=== PATIENT | female | born 1935 | race Caucasian/White ===

== ENCOUNTER 2016-07-05 22:37 | Emergency (ER) | payer MEDICARE, OTHER ==
[2016-07-05] MEDS ORDERED: ONDANSETRON HCL/PF 2 MG/ML VIAL IV ONE (22:39)
[2016-07-05 22:50] LABS: Hemoglobin 13.5 gm/dL (12.5-16.0); Mean Cell Volume 92.8 fl (78-100); Mean Corpuscular Hemoglobin 30.5 pg (27-31); Mean Corpuscular Hgb Conc 32.9 g/dl (32-36); Mean Platelet Volume 10.4 fl (6.0-9.5); Platelet Count 202 K/mm3 (150-450); Red Blood Count 4.42 M/mm3 (4.2-5.4); White Blood Count 20.3 K/mm3 (4.0-10.5)
[2016-07-05 22:51] LABS: Total Cells Counted 100
[2016-07-05 23:03] LABS: Albumin * 3.7 gm/dl (3.4-5.0); Anion Gap 16.7 mmol/L (6.8-13.8); BUN/Creatinine Ratio 27.3 (9.0-21.6); Bilirubin, Total 0.5 mg/dL (0.0-1.1); Calcium * 9.1 mg/dL (7.9-10.9); Carbon Dioxide 25.8 mmol/L (24-32.6); Potassium 3.5 mmol/L (3.4-4.6); Total Protein 7.9 gm/dL (6.2-8.2)
[2016-07-05 23:25] LABS: Band 5 % (0-2.0); Eosinophil 1 % (0-3); Lymphocyte 8 % (20-51); Monocyte 9 % (0-9); Neutrophil 77 % (42-75); Neutrophil # 15.6 K/mm3 (1.3-6.0)
[2016-07-05] MEDS ORDERED: MORPHINE SULFATE 2 MG/ML DISP.SYRIN IV ONE ×2 (23:25→23:42)
[2016-07-05 23:26] LABS: Platelet Estimate Normal (NORMAL); RBC Morphology Normal (NORMAL)
[2016-07-05] MEDS ORDERED: MORPHINE SULFATE 2 MG/ML DISP.SYRIN ONE ×2 (23:26→23:44)
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
[2016-07-05 23:42] VITALS: BP 181/72
[2016-07-05] MEDS ORDERED: LORazepam 2 MG/ML DISP.SYRIN IV ONE (23:53)
[2016-07-05] MEDS ORDERED: LORazepam 2 MG/ML DISP.SYRIN ONE (23:53)
== END 2016-07-06 00:11 | disposition short-term general hospital (02) ==
LOC: ER 22:37
PROC: 0T9B70Z Drainage of Bladder with Drainage Device, Via Natural or Artificial Opening (ICD-10-PCS; principal; 2016-07-05)
DX: S06.5X0A Traumatic subdural hemorrhage without loss of consciousness, initial encounter (principal); S06.6X0A Traumatic subarachnoid hemorrhage without loss of consciousness, initial encounter; S02.119A Unspecified fracture of occiput, initial encounter for closed fracture; W10.2XXA Fall (on)(from) incline, initial encounter; Z91.81 History of falling; Y93.9 Activity, unspecified; Y92.009 Unspecified place in unspecified non-institutional (private) residence as the place of occurrence of the external cause; Y99.9 Unspecified external cause status

== ENCOUNTER 2016-09-12 13:42 | Emergency (ER) | payer MEDICARE, OTHER ==
[2016-09-12] MEDS ORDERED: ONDANSETRON HCL/PF 2 MG/ML VIAL IV ONE (13:45)
--- NOTE | 2016-09-12 13:48 | ERNOTE ---
Abdominal HPI - General Time Seen by Provider: 09/12/16 13:42 Source: patient Exam Limitations: no limitations - Immun/Allergies/Home Medications Immunizatons: IMMUNIZATION HX Immunizations Up to Date Yes History of Influenza Vaccine Yes Hx Pneumococcal Vaccination Yes Allergies/Adverse Reactions: Allergies codeine [Codeine] Adverse Reaction (Mild, Verified 07/05/16 22:56) NAUSEA, VOMITING Home Medications: HOME MEDICATIONS Multivitamin [Multivitamins] 1 each PO DAILY 04/28/12 [Last Taken 02/14/16] Aspirin [Aspirin Enteric Coated] 81 mg PO DAILY 12/30/12 [Last Taken 02/14/16] Cholecalciferol (Vitamin D3) [Vitamin D3] 2,000 unit PO DAILY 10/11/14 [Last Taken 02/14/16] Ascorbic Acid [Vitamin C] 500 mg PO DAILY 01/25/16 [Last Taken 02/14/16] Calc/D3/Mag/Zn/[place] [Calcium 600 mg Plus Vit D Tab] 1 each PO BID 03/01 [Last Taken 02/14/16] Cyanocobalamin [Vitamin B-12] 1,000 mcg PO DAILY 01/25/16 [Last Taken 02/14/16] Metoprolol Succinate [Toprol Xl] 50 mg PO DAILY 01/25/16 [Last Taken 02/14/16 20 :00] Naproxen Sodium [Aleve] 220 mg PO BID PRN 01/25/16 [Last Taken 02/14/16] - History of Present Illness Narrative: Patient felt fine when she got up this morning. She was at a lunch and ate a BLT sandwich. About twenty minutes later she started to vomit multiple times, got hot and light headed prior to that. She denies any abdominal pain, no diarrhea, no recent illness Review of Systems - Review of Systems Constitutional: Present: recent illness - fall with concussion two months ago, recovered well EYE: Absent: vision changes ENT: Absent: sore throat Respiratory: Absent: shortness of breath, cough Cardiology: Absent: chest pain Gastrointestinal/Abdominal: Present: See HPI. Absent: diarrhea, abdominal pain Genitourinary: Present: no symptoms reported Musculoskeletal: Absent: back pain Neurological: Absent: headache, weakness, numbness - Patient's Past Medical History Patient History - Medical: Osteoarthritis, Other Patient History - Cardiac/Respiratory: Atrial Fibrillation, Hypertension Patient History - Cancer: No Hx of Cancer Patient History - Surgical Procedures: Appendectomy, Cholecystectomy, Colonoscopy, Total Hip Replacement Patient History - Other: None - Family History Mother Family History - Medical: , No pertinent hx Family History - Cardiac/Respiratory: No pertinent hx Father Family History - Medical: , Renal Disease Family History - Cardiac/Respiratory: No pertinent hx - Social History Living Situations: home Abuse History: No History of abuse Psych History: No pertinent hx Alcohol Use: none Drug Use: none - Immunizations Immunizations Up to Date: Yes Hx Pneumococcal Vaccination: Yes History of Influenza Vaccine: Yes Physical Exam - Physical Exam General Appearance: Present: wd/wn, alert, no apparent distress Eye Exam: Normal inspection: bilateral, PERRL: bilateral Respiratory: Present: no respiratory distress, normal breath sounds, no accessory muscle use, chest nontender, lungs clear Cardiovascular/Chest: Present: regular rate, rhythm, no murmur Gastrointestinal/Abdominal: Present: normal bowel sounds, nontender, nondistended, soft Extremity Exam: Present: no edema Neurological Exam: Present: alert, oriented, normal mood/affect Skin Exam: Present: normal color, warm/dry ED Progress - Results and Orders Patient's Lab Results:: I have reviewed the patient's lab results. - Vital Signs Patient's Vital Signs:: I have reviewed the patient's vital signs. - EKG EKG: NSR, unchanged from - 01/2016 EKG read: Interp. by me - X-Ray X-Ray #1 X-Ray: abdomen - abnormal bowel gas pattern suggestive of colitis Interpretation: Reviewed by me - Progress/Reassessment Progress Note-Subjective: 09/12/16 15:24 discussed results with patient and family, patient is ffeeling much better, no nausea, ready to try water family member present states that patient was unresponsive for a few minutes in chair prior to vomiting, discussed diffential diagnosis, most likely vasovagal response to imminent vomiting, will get EKG and troponin to look for possible cardiac cause 09/12/16 16:10 tolerating water, feeling back to normal, ready to go home Departure - Departure Clinical Impression: Vasovagal near syncope Gastritis Qualifiers: Gastritis type: unspecified gastritis Chronicity: acute Gastritis bleeding: without bleeding Qualified Code(s): K29.00 - Acute gastritis without bleeding Disposition: Home self-care Condition: Good Instructions: Nausea, Adult, Vasovagal Syncope, Adult Referrals: Humberto Mahajan DO [Primary Care Provider] -
--- OUTSIDE RECORDS SUMMARY | 2016-09-12 13:51 | XMS REPORT | Continuity of Care Document ---
:1935 Author Organization [facility] ([facility]) Address [address] [place] [address] Phone [phone] Care Team Providers Name Role Phone Humberto Mahajan Primary Care Provider [phone] Source Comments This disclosure is being made pursuant to the Care Everywhere program, applicable federal and state laws, and may not contain all informaitonavailable regarding this patient.[facility] ([facility]) Active Allergies and Adverse Reactions Allergen Noted Date Severity Reactions Comments Codeine 07/06/2016 Unknown Current Medications Prescription Sig. Disp. Refills Start Date End Date Status calcium carbonate (650 Take 650 mg by Active mg Ca) 1625 mg tablet mouth 2 times daily. metoPROLol tartrate 50 Take 50 mg by Active mg tablet mouth 2 times daily. multivitamin tablet Take 1 tablet Active by mouth daily. acetaminophen 325 mg Take 650 mg by Active tablet mouth every 6 hours as needed. cyanocobalamin (VITAMIN Take 500 mcg by Active B-12) 500 mcg tablet mouth daily. ascorbic acid (vitamin Take 500 mg by Active C) (VITAMIN C) 500 mg mouth daily. tablet cholecalciferol (VITAMIN Take 2,000 Active D3) 1,000 unit capsule Units by mouth daily. docusate 100 mg capsule Take 1 capsule 60 capsule 3 07/09/2016 Active (100 mg total) by mouth 2 times daily. sennosides 8.6 mg tablet Take 1-2 60 tablet 5 07/09/2016 Active tablets (8.6-17.2 mg total) by mouth daily. meclizine 25 mg tablet Take 1 tablet 30 tablet 0 07/11/2016 Active (25 mg total) by mouth 3 times daily. metoPROLol succinate 100 Take 1 tablet 30 tablet 11 07/11/2016 Active mg XL tablet (100 mg total) by mouth daily. aspirin 81 mg chewable Take 1 tablet 60 tablet 0 07/18/2016 Active tablet (81 mg total) by mouth daily. caffeine 200 mg tablet Take 1 tablet 80 tablet 11 07/17/2016 Active (200 mg total) by mouth 2 times daily. lisinopril 20 mg tablet Take 1 tablet 80 tablet 11 07/17/2016 Active (20 mg total) by mouth 2 times daily. traMADol 50 mg tablet Take 1 tablet 120 tablet 0 07/17/2016 Active (50 mg total) by mouth 4 times daily as needed. Active Problems Problem Noted Date occipital bone fracture 07/06/2016 Subdural hematoma, acute 07/06/2016 Chronic atrial fibrillation 07/06/2016 SAH (subarachnoid hemorrhage) 07/06/2016 SDH (subdural hematoma) 07/06/2016 Most Recent Encounters Date Type Specialty Providers Description 09/01/2016 Office Visit Neurosurgery Alessandro Cohen, Dx: SDH (subdural MD hematoma) (Primary Dx) 09/01/2016 [facility], Dx: Trauma Encounter 09/01/2016 Office Visit Alessandro Kirkland, Chief Comp: Patient MD Reported Reason For Visit 09/01/2016 [facility], Dx: Trauma Encounter 08/18/2016 Office Visit Alessandro Kirkland, Chief Comp: Patient MD Reported Reason For Visit 08/18/2016 Office Visit Alessandro Kirkland, Chief Comp: Patient MD Reported Reason For Visit 07/21/2016 Telephone Neurosurgery Tyler Callahan MD 07/11/2016 Orders/Notes Neurosurgery Tyler Callahan MD 07/09/2016 [facility] Radiology Viola Melgar MD Dx: Trauma Encounter 07/07/2016 [facility] Neurology Viola Melgar MD Chief Comp: Patient Encounter Reported Reason For Visit 07/06/2016 [facility] [place], Chief Comp: Patient Encounter MD Mohit Reported Reason For Viola Melgar MD Visit 07/06/2016 [facility], Chief Comp: Patient Encounter MD Mohit Reported Reason For Visit 07/06/2016 [facility], Chief Comp: Patient Encounter MD Mohit Reported Reason For Visit 07/06/2016 [facility] Neurology Viola Melgar MD Chief Comp: Patient Encounter Rep[facility]: [facility] (Primary 07/17/2016 Encounter Inpatient - Adult MD Arian Dx) Constantino Azevedo MD Howard, Matthew A III, MD Kawasaki, Hiroto, MD Social History Tobacco Use Types Packs/Day Years Used Date Former Smoker Cigarettes 0.25 10 Tobacco Cessation:Counseling Given: Yes Comments: Alcohol Use Drinks/Week oz/Week Comments Yes 1 Standard drinks or equivalent 0.6 Last Filed Vital Signs Vital Sign Reading Time Taken Blood Pressure 114/57 09/01/2016 2:32 PM CDT Pulse 64 09/01/2016 2:32 PM CDT Temperature 35.4 C (95.7 F) 09/01/2016 2:32 PM CDT Respiratory Rate 14 07/17/2016 7:41 AM CDT Height 1.702 m (5' 7") 09/01/2016 2:32 PM CDT Weight 81.7 kg (180 lb 1.9 oz) 09/01/2016 2:32 PM CDT Body Mass Index 28.2 09/01/2016 2:32 PM CDT Oxygen Saturation 94% 07/17/2016 7:41 AM CDT Plan of Care Date Type Specialty Providers Description 09/29/2016 Appointment Radiology Chief Comp: Patient Reported Reason For Visit 09/29/2016 Appointment Neurosurgery Alessandro Cohen MD Chief Comp: Patient [address] [place] [address] [phone] (Fax) Health Maintenance Due Date Last Done Comments Hepatitis B Vaccine (1 of 3 - Primary Series) 1935 Tdap Vaccine 1945 Lipid Disorder Screening 1952 Td Vaccine 1953 Colonoscopy 06/26/1984 Zoster Vaccine 1994 Osteoporosis Screening (DXA Bone Density) 06/28/1999 Pneumococcal Vaccine (1 of 2 - PCV13) 06/28/1999 Influenza Vaccine: Seasonal (Season Ended) 2016 Results from Last [address] BRAIN WO CONTRAST ([id number]) (09/01/2016 2:22 PM)Only the most recent of3 resultswithin the time period is included. Narrative Procedure: CT BRAIN WO CONTRAST ([id number]) Indication: Subdural hematoma follow-up Technique: Axial CT of the brain without IV contrast. Sagittal and coronal reformations are also provided for review. Comparison: 07/06/2016 Findings: Interval evolution of the right-sided subdural hematoma which now appears iso to hypoattenuating with redistribution of the components without significant change in the overall size. The left-sided subdural hematoma is no longer evident nor is the falcine component. No new hemorrhage. No large vascular distribution ischemic infarct. Unremarkable configuration of the ventricles and basilar cisterns. Unremarkable brainstem and posterior fossa. Right occipital nondisplaced skull fracture is redemonstrated. Impression: Expected mild interval evolution and reduction in intracranial hemorrhage. Procedure Note Mu, Incoming Imaging Results - SunSeptember 01, 2016 4:24 PM CDT Procedure: CT BRAIN WO CONTRAST ([id number]) Indication: Subdural hematoma follow-up Technique: Axial CT of the brain without IV contrast. Sagittal and coronal reformations are also provided for review. Comparison: 07/06/2016 Findings: Interval evolution of the right-sided subdural hematoma which now appears iso to hypoattenuating with redistribution of the components without significant change in the overall size. The left-sided subdural hematoma is no longer evident nor is the falcine component. No new hemorrhage. No large vascular distribution ischemic infarct. Unremarkable configuration of the ventricles and basilar cisterns. Unremarkable brainstem and posterior fossa. Right occipital nondisplaced skull fracture is redemonstrated. Impression: Expected mild interval evolution and reduction in intracranial hemorrhage. T SPINE AP& LATERAL (09/01/2016 1:42 PM)Only the most recent of2 resultswithin the time period is included. Impressions Findings / Impression: Stable alignment of the thoracic spine, with redemonstrated diffuse osteopenia. No new fracture appreciated. Alignment of the known fractures at T7-T9 is stable. Narrative Procedure: T SPINE AP & LATERAL Clinical Indication: Thoracic spine fracture Comparison: 07/08/2016, MR images dated 07/06/2016 Procedure Note Mu, Incoming Imaging Results - SunSeptember 01, 2016 2:43 PM CDT Procedure: T SPINE AP & LATERAL Clinical Indication: Thoracic spine fracture Comparison: 07/08/2016, MR images dated 07/06/2016 IMPRESSION Findings / Impression: Stable alignment of the thoracic spine, with redemonstrated diffuse osteopenia. No new fracture appreciated. Alignment of the known fractures at T7-T9 is stable. BASIC METABOLIC PANEL W/ CALCIUM (CHEM 8) (07/17/2016 9:37 AM)Only the most recent of13 resultswithin the time period is included. Component Value Range Sodium 134(L) 135-145 mEq/L Potassium 4.2 3.5-5.0 mEq/L Chloride 96 95-107 mEq/L CO2 26 22-29 mEq/L BUN 10 10-20 mg/dL Creatinine 0.5Comment: 0.5-1.0 mg/dL Creatinine switched to enzymatic method on 08/23/2010.GFR equation switched to IDMS-traceable MDRD equation on 08/23/2010. Calculated GFR values are not valid in clinical settings where serum creatinine is changing. Glucose 111(H)Comment: 65-99 mg/dL The Expert Committee on the Diagnosis and Classification of Diabetes has defined impaired fasting glucose as greater than or equal to 100 mg/dL but less than 126 mg/dL.(Diabetes Care 28 (Suppl 1)S41,2005) Calcium 9.4 8.5-10.5 mg/dL Anion Gap 12 mEq/L Calculated GFR >90 >60 mL/min/1.73 m2 Specimen Blood CBC (COMPLETE BLOOD COUNT) (07/15/2016 8:03 AM)Only the most recent of9 resultswithin the time period is included. Component Value Range WBC Count 12.9(H) 3.7-10.5 K/MM3 RBC Count 4.15 4.00-5.20 M/MM3 Hemoglobin 12.5 11.9-15.5 g/dL Hematocrit 38 35-47 % MCV (Mean Corpuscular Volume) 91 82-99 FL MCH (Mean Corpuscular Hemoglobin) 30 25-35 PG MCHC (Mean Corpuscular Hemoglobin Concentration) 33 32-36 % Platelet Count 272 150-400 K/MM3 MPV (Mean Platelet Volume) 9.7 9.4-12.3 FL RBC Dist Width-STD 48.1(H) 36.4-46.3 FL RBC Distrib Width 14.6(H) 9.0-14.5 % Nucleated RBC 0 /100 WBC Specimen Whole Blood SODIUM (07/13/2016 8:31 PM)Only the most recent of3 resultswithin the time period is included. Component Value Range Sodium 127(L) 135-145 mEq/L Specimen Blood OSMOLALITY-URINE (07/12/2016 10:28 AM)Only the most recent of2 resultswithin the time period is included. Component Value Range Osmolality-Urine 622 009-3778 mOsm/k Specimen Urine OSMOLALITY, PLASMA (07/12/2016 10:10 AM)Only the most recent of2 resultswithin the time period is included. Component Value Range Osmolality, Plasma 259(L) 275-295 mOsm/kg Specimen Blood SODIUM-URINE,RANDOM (07/12/2016 6:25 AM) Component Value Range Sodium, Urine, Random 184 mEq/L Specimen Urine URINE CULTURE, ROUTINE AEROBIC (07/10/2016 7:41 PM) Component Value Range Quantitative Culture Mixed Nathalia (Urogenital) suggesting an improperly collected specimen(A) Specimen Culture - Urine, Midstream clean catch ECG - EKG 12 LEAD (07/10/2016 7:21 AM)Only the most recent of2 resultswithin the time period is included. Component Value Range ECG SEVERITY - OTHERWISE NORMAL ECG - VENT. RATE 77 bpm RR 779 ms P-R INTERVAL 156 ms QRSD INTERVAL 102 ms QT INTERVAL 408 ms QTC INTERVAL 462 ms P AXIS 13 degrees QRS AXIS -16 degrees T WAVE AXIS 17 degrees REPORT SINUS RHYTHM [Now Present] BORDERLINE LEFT AXIS DEVIATION [Insig. Chg.] SIGNIFICANT RHYTHM AND ECG CONTOUR CHANGES [Now Absent] NONSPECIFIC REPOL ABNORMALITY, INF-LAT LEADS [Now Absent] PAIRED VENTRICULAR PREMATURE COMPLEXES [Now Absent] ATRIAL FIBRILLATION Interpreting Physician: Shant Koch MD URINALYSIS (07/10/2016 7:00 AM) Component Value Range Color, Urine Yellow Straw, Pale Yellow, Yellow, Clear, None Clarity, Urine Cloudy(A) Clear pH, Urine 7.0 <9.0 Glucose, Urine Negative Negative Blood, Urine 2+(A) Negative Ketones, Urine Negative Negative Protein, Urine 1+(A) Negative Urobilinogen, Urine Normal Normal Bilirubin, Urine Negative Negative Leukocyte Esterase, Urine 3+(A) Negative Nitrite, Urine Positive(A) Negative Spec [place], Urine 1.010 1.000-1.030 Specimen Urine T SPINE 45& 90 DEGREE (07/07/2016 1:30 PM) Impressions Findings / Impression: Radiographs at 45 and 90 degrees sitting. Known subtle fractures at T7-T9 are less conspicuous on plain radiograph. No dynamic instability. Multilevel degenerative change without evidence of new fracture or dislocation. Narrative Procedure: T SPINE 45 & 90 DEGREE Clinical Indication: History of trauma with compression fracture. Comparison: MRI and CT dated 07/06/2016. Procedure Note Mu, Incoming Imaging Results - SunJul 07, 2016 3:37 PM CDT Procedure: T SPINE 45 & 90 DEGREE Clinical Indication: History of trauma with compression fracture. Comparison: MRI and CT dated 07/06/2016. IMPRESSION Findings / Impression: Radiographs at 45 and 90 degrees sitting. Known subtle fractures at T7-T9 are less conspicuous on plain radiograph. No dynamic instability. Multilevel degenerative change without evidence of new fracture or dislocation. PHOSPHORUS (07/07/2016 3:40 AM)Only the most recent of2 resultswithin the time period is included. Component Value Range Phosphorus 3.0Comment:New reference range installed 01/26/15. 2.5-4.5 mg/dL Specimen Blood MAGNESIUM (07/07/2016 3:40 AM)Only the most recent of2 resultswithin the time period is included. Component Value Range Magnesium 2.3 1.5-2.9 mg/dL Specimen Blood BLOOD GLUCOSE, BEDSIDE (07/06/2016 6:39 PM)Only the most recent of3 resultswithin the time period is included. Component Value Range Glucose, Accu-Chek 163(H) 65-99 mg/dL Specimen Blood, capillary EEG - CONTINUOUS BEDSIDE EEG MONITORING (07/06/2016 4:29 PM) Viola Cox MD 07/06/20164:29 PM REBEL PHILLIP 81 y.o. female Continuous Bedside EEG Monitoring (CBEM) with Video Day 0: dates/times reviewed 07/06/2016 at 0925 to 07/06/2016 at 1252. O1 and O2 leads are absent due to cervical collar Reason for EEG monitoring: EEG is requested for this 81 y.o. female with traumatic brain injury for evaluation of seizure. Ordering Provider: Leslie Vásquez Clinical State: awake and asleep Electrographic Findings: Background: There is intermittent 7-8 Hz posterior dominant rhythm, with diffuse background showing theta more than delta slowing and superimposed fast activity.Sleep is seen with periodic arousals associated with increased respiratory movement. Interictal Discharges: none Ictal Discharges: none Reactive EEG change: present Clinical Events: none Description: This is an abnormal EEG due to the presence of diffuse background slowing.No epileptiform activity is seen. Impression: Findings are consistent with diffuse cerebral dysfunction.No seizure activity is seen.Periodic arousals in sleep could be suggestive of sleep apnea. Findings reported to Dr. Herrera of Neurosurgery. Recording continues. Aki Lechuga Neurology Fellow I,Viola Melgar MD, interpreted this EEG/VEEG in an instructive setting with the above named resident and/or fellow. ABDOMEN AP SUPINE (07/06/2016 4:18 PM) Impressions Findings/impression: The tip of the orogastric tube and the sidehole are located in the gastric body. The bowel gas pattern is nonobstructive.The lung bases are clear. Narrative Procedure:ABDOMEN AP SUPINE Clinical Indication: Evaluate orogastric tube placement Technique: Supine portable radiograph of the abdomen. Comparison: None. Procedure Note Mu, Incoming Imaging Results - Sonya Jul 06, 2016 5:50 PM CDT Procedure: ABDOMEN AP SUPINE Clinical Indication: Evaluate orogastric tube placement Technique: Supine portable radiograph of the abdomen. Comparison: None. IMPRESSION Findings/impression: The tip of the orogastric tube and the sidehole are located in the gastric body. The bowel gas pattern is nonobstructive. The lung bases are clear. ECHO ADULT - ECHOCARDIOGRAM, TRANSTHORACIC (07/06/2016 3:47 PM) Component Value Range Interpretation Summary Portable study performed on inpatient unit. Normal left ventricular size. Normal left ventricular systolic function. LV Ejection Fraction=56% (based on Biplane Method of Discs). No regional wall motion abnormalities noted. Upper limit of normal right ventricular size. Probably normal right ventricular systolic function. No hemodynamically significant valvular abnormalities noted. Patient Height (cm) 177.8 cm Patient Weight (kg) 89.4 kg Systolic Pressure (mmHg) 132 mmHg Diastolic Pressure (mmHg) 68 mmHg BSA (meters^2) 2.1 m^2 Left Ventricle (LV) Normal left ventricular size. Normal LV wall thickness. Normal left ventricular systolic function. LV Ejection Fraction=56% (based on Biplane Method of Discs). E/E' ratio is 6, which predicts normal LV filling pressure. No regional wall motion abnormalities noted. Right Ventricle (RV) Upper limit of normal right ventricular size. Probably normal right ventricular systolic function. Left and Right Atria (LA, RA) Normal LA chamber size. Normal right atrial size. No interatrial shunt visualized by color doppler Mitral Valve (MV) Normal mitral valve leaflet morphology Trace mitral regurgitation by spectral Doppler. Tricuspid Valve (TV) The TV leaflets appear thin and do not appear to be restricted. Trace to mild tricuspic regurgitation based on 'spectral Doppler'. RV/RA peak instantaneous systolic gradient=26mmHg. Aortic Valve (AoV) Trileaflet Aortic valve. Mildly calcified aortic valve leaflets. No aortic regurgitation by color Doppler. No hemodynamically significant valvular aortic stenosis by doppler Pulmonic Valve (PV) Pulmonic valve is not visualized No pulmonic valvular regurgitation by doppler Aorta and Pulmonary Artery (Ao, PA) The aortic annulus is normal in size. Pericardium/Pleura There is no pericardial effusion. Procedures Complete 2D with Doppler, Color Flow and image documentation ( [id number]) I personally viewed the echocardiogram and approve the above interpretation Inf. Vena Cava (IVC) / Pulm. Veins The IVC size is normal (< 2.1 cm). Technical Comments Portable study performed on inpatient unit. IVSd 0.91 cm LVIDd 4.6 cm LVIDs 2.4 cm LVPWd 1.1 cm IVS/LVPW 0.86 % LVPW thick -29.3 % LA dimension 3.4 cm LVOT diam 2.1 cm LVOT area 3.5 cm^2 TR Max shamar 253.9 cm/sec Low Range of LVEF 56 High Range of LVEF 56 Reason For Study Assess Cardiac Function Whiteprinting Machine Operator Eloise Yadav Interpreting Physician Cathy Anthony electronically signed on 2016-07-06 16:29:50.077 MRV HEAD W/WO CONTRAST ([id number]) (07/06/2016 2:07 PM) Impressions Impression: No venous sinus thrombosis. Narrative Procedure: MRV HEAD W/WO CONTRAST ([id number]) Indication: Trauma. Rule out sinus injury. Technique: Multisequence, multiplanar MRV of the head before and after the uneventful administration of10 mL GadavistIV contrast. Source and MIP images were obtained and reviewed. 3D images were processed on a separate workstation. Comparison: None Findings: There is normal appearance of the deep and dural venous sinuses without evidence of thrombosis. There is excess drainage pathway to the right jugular vein. Visualized cortical veins are otherwise unremarkable. Procedure Note Mu, Incoming Imaging Results - Sonya Jul 06, 2016 5:20 PM CDT Procedure: MRV HEAD W/WO CONTRAST ([id number]) Indication: Trauma. Rule out sinus injury. Technique: Multisequence, multiplanar MRV of the head before and after the uneventful administration of 10 mL Gadavist IV contrast. Source and MIP images were obtained and reviewed. 3D images were processed on a separate workstation. Comparison: None Findings: There is normal appearance of the deep and dural venous sinuses without evidence of thrombosis. There is excess drainage pathway to the right jugular vein. Visualized cortical veins are otherwise unremarkable. IMPRESSION Impression: No venous sinus thrombosis. MRI SPINE THORACIC WO CONTRAST ([id number]) (07/06/2016 2:06 PM) Impressions Impression: 1. Traumatic distraction injury across the T7-T8 disc space with disruption of the anterior longitudinal ligament. 2. Linear edematous signal within the T8 superior endplate consistent with traumatic fracture. 3. Edematous signal within the T7 and T9 vertebral bodies consistent with posttraumatic contusion/fracture. Narrative Procedure: MRI SPINE THORACIC WO CONTRAST ([id number]) Indication: Status post fall down several stairs with intracranial hemorrhage. Widening of the anterior T6-T7 interspace on spinal CT. Technique: Multisequence, multiplanar MRI of the thoracic spine without IV contrast using a trauma protocol. Comparison: Thoracic spine CT 07/06/2016 Findings: There is exaggeration of the normal thoracic kyphosis. Vertebral body heights are maintained. There is hyperintense T2/STIR signal within the anterior aspect of the T7-T8 intervertebral space. There is hyperintense STIR signal with associated low T1 signal (linear contrast the T8 endplate) within the vertebral bodies at T7, T8, and T9. The anterior longitudinal ligament is disrupted at the T7-T8 interspace. Major ligamentous structures otherwise appear intact. T2 cord signal is within normal limits. No spinal canal narrowing. No epidural collections. Bilateral dependent atelectasis in the lungs. A large cyst is redemonstrated within the liver. Procedure Note Mu, Incoming Imaging Results - Sonya Jul 06, 2016 5:21 PM CDT Procedure: MRI SPINE THORACIC WO CONTRAST ([id number]) Indication: Status post fall down several stairs with intracranial hemorrhage. Widening of the anterior T6-T7 interspace on spinal CT. Technique: Multisequence, multiplanar MRI of the thoracic spine without IV contrast using a trauma protocol. Comparison: Thoracic spine CT 07/06/2016 Findings: There is exaggeration of the normal thoracic kyphosis. Vertebral body heights are maintained. There is hyperintense T2/STIR signal within the anterior aspect of the T7-T8 intervertebral space. There is hyperintense STIR signal with associated low T1 signal (linear contrast the T8 endplate) within the vertebral bodies at T7, T8, and T9. The anterior longitudinal ligament is disrupted at the T7-T8 interspace. Major ligamentous structures otherwise appear intact. T2 cord signal is within normal limits. No spinal canal narrowing. No epidural collections. Bilateral dependent atelectasis in the lungs. A large cyst is redemonstrated within the liver. IMPRESSION Impression: 1. Traumatic distraction injury across the T7-T8 disc space with disruption of the anterior longitudinal ligament. 2. Linear edematous signal within the T8 superior endplate consistent with traumatic fracture. 3. Edematous signal within the T7 and T9 vertebral bodies consistent with posttraumatic contusion/fracture. ALPHA-FETOPROTEIN (07/06/2016 12:08 PM) Component Value Range AFP 2.4 0.0-9.0 ng/mL Specimen Blood LIVER PANEL (07/06/2016 12:08 PM) Component Value Range Bilirubin Total 0.7 <=1.2 mg/dL AST 28Comment: 0-32 U/L Adult reference ranges updated on 03/11/13 at 830am ALT 20Comment: 0-33 U/L The upper limit of normal for alanine aminotransferase (ALT) reference ranges for adults is controversial with some authorities recommending limit as low as 30 U/L for males and 19 U/L for females. Th ere is increased incidence of subclinical liver disease (e.g., early steatohepatitis) in patients with ALT values in the range of 31-41 U/L for males and 20-33 U/L for females. ALT values should alway s be interpreted in conjunction with clinical history, physical examination findings, and, if applicable, data from other diagnostic tests. ALP 70 35-104 U/L GGT 19 5-36 U/L Albumin 4.0 3.4-4.8 g/dL Total Protein 7.4 6.0-8.0 g/dL Specimen Blood VASC CAROTID DUPLEX SCAN (BILATERAL) (07/06/2016 11:58 AM) Component Value Range [facility] VASC RIGHT CCA PROX PSV 76 cm/sec [facility] VASC RIGHT CCA PROX PEDV 16 cm/sec [facility] VASC RIGHT CCA DIST PSV 67 cm/sec [facility] VASC RIGHT CCA DIST PEDV 14 cm/sec [facility] VASC RIGHT ICA PROX PSV 54 cm/sec [facility] VASC RIGHT ICA PROX PEDV 15 cm/sec [facility] VASC RIGHT ICA DIST PSV 57 cm/sec [facility] VASC RIGHT ICA DIST PEDV 14 cm/sec [facility] VASC RIGHT ECA PSV 84 cm/sec [facility] VASC RIGHT ECA PEDV 11 cm/sec [facility] VASC RIGHT VERTEBRAL PSV 63 cm/sec [facility] VASC RIGHT VERTEBRAL PEDV 17 cm/sec [facility] VASC RIGHT ICA/CCA 0.81 [facility] VASC LEFT CCA PROX PSV 70 cm/sec [facility] VASC LEFT CCA PROX PEDV 10 cm/sec [facility] VASC LEFT CCA DIST PSV 72 cm/sec [facility] VASC LEFT CCA DIST PEDV 13 cm/sec [facility] VASC LEFT ICA PROX PSV 68 cm/sec [facility] VASC LEFT ICA PROX PEDV 14 cm/sec [facility] VASC LEFT ICA DIST PSV 71 cm/sec [facility] VASC LEFT ICA DIST PEDV 17 cm/sec [facility] VASC LEFT ECA PSV 157 cm/sec [facility] VASC LEFT ECA PEDV 16 cm/sec [facility] VASC LEFT VERTEBRAL PSV 60 cm/sec [facility] VASC LEFT VERTEBRAL PEDV 13 cm/sec [facility] VASC LEFT ICA/CCA 0.94 POTASSIUM (07/06/2016 4:21 AM) Component Value Range Potassium 3.8 3.5-5.0 mEq/L Specimen Blood LACTIC ACID, WHOLE BLOOD ([facility]) (07/06/2016 3:34 AM) Component Value Range Lactic Acid, Whole Blood 3.1(H)Comment: 0.5-2.0 mEq/L Glycolate, the principle toxic metabolite of ethylene glycol, can cause artifactual elevation of measured lactate. Specimen Whole Blood CT IAC WO CONTRAST ([id number]) (07/06/2016 2:37 AM) Impressions Impression: 1. No temporal bone fracture. 2. Fluid in bilateral mastoid air cells, nonspecific for infection versus effusion. This final report is in agreement with the critical and emergent preliminary findings reported by the microarray operations vice president systems protection technician. Narrative Procedure: CT IAC WO CONTRAST ([id number]) Indication: Trauma, occipital bone fracture, fluid in mastoids Technique: Axial CT of the skull base focusing on the temporal bones without IV contrast. Multiplanar reformats are also provided for review. Comparison: Head CT dated 07/06/2016 Findings: Right: The external auditory canal is patent. The ossicular chain has normal relationships. The oval and round windows are normal. The cochlea, semicircular canals, and vestibular aqueducts are normal. Partial opacification of the mastoid air cells. Left: The external auditory canal is patent. The ossicular chain has normal relationships. The oval and round windows are normal. The cochlea, semicircular canals, and vestibular aqueducts are normal. Partial opacification of the mastoid air cells. Stable right occipital bone fracture. Intracranial contents are better evaluated on dedicated head CT. Procedure Note Mu, Incoming Imaging Results - Sonya Jul 06, 2016 10:10 AM CDT Procedure: CT IAC WO CONTRAST ([id number]) Indication: Trauma, occipital bone fracture, fluid in mastoids Technique: Axial CT of the skull base focusing on the temporal bones without IV contrast. Multiplanar reformats are also provided for review. Comparison: Head CT dated 07/06/2016 Findings: Right: The external auditory canal is patent. The ossicular chain has normal relationships. The oval and round windows are normal. The cochlea, semicircular canals, and vestibular aqueducts are normal. Partial opacification of the mastoid air cells. Left: The external auditory canal is patent. The ossicular chain has normal relationships. The oval and round windows are normal. The cochlea, semicircular canals, and vestibular aqueducts are normal. Partial opacification of the mastoid air cells. Stable right occipital bone fracture. Intracranial contents are better evaluated on dedicated head CT. IMPRESSION Impression: 1. No temporal bone fracture. 2. Fluid in bilateral mastoid air cells, nonspecific for infection versus effusion. This final report is in agreement with the critical and emergent preliminary findings reported by the microarray operations vice president systems protection technician. CT CHEST ABDOMEN PELVIS W CONTRAST ([id number], [id number]) (07/06/2016 2:12 AM) Impressions Impression: 1. No acute traumatic pathology. 2. Lungs show bilateral dependent atelectasis and possible mild pulmonary venous congestion. 3. Multiple well-circumscribed cystic lesions in the liver. Mild diffuse biliary duct dilatation. These are favored to represent simple cysts causing mild extrinsic compression of adjacent bile ducts. Much less likely is biliary cystadenoma due to the ductal dilatation. 4. Fluid-filled esophagus to the superior mediastinum. Consider enteric tube placement to decrease risk of aspiration. This final report is in agreement with the critical and emergent preliminary findings reported by the microarray operations vice president systems protection technician. Narrative Procedure: CT CHEST ABDOMEN PELVIS W CONTRAST ([id number], [id number]) Clinical Indication: Fall down stairs, head bleeds Technique: CT exam of the chest, abdomen, and pelvis is performed following the uneventful administration of 100 cc Isovue-370 IV contrast. Comparison: None. Findings: Neck base and axilla: No lymphadenopathy. Air bubble in right subclavian vein, likely related to contrast injection. Mediastinum and odilia: Subcentimeter mediastinal lymph nodes. Heart and thoracic aorta: Mild cardiomegaly. Airway: Patent. Lungs and pleura: Bilateral dependent atelectasis. Mild pulmonary venous congestion and interlobular septal thickening. Patchy atelectasis in the lingula. Esophagus: Fluid filled esophagus to the superior mediastinum. Liver: Liver mildly enlarged at 19 cm craniocaudal. 10 x 11 x 16 cm well-circumscribed mass in the right lobe of the liver with Hounsfield units of 13. Anterior to the inferior portion of the cystic mass there is low attenuation within the liver (6-108) that is favored to be chronic as there is no overlying fracture or subcapsular hematoma. Surrounding hepatic parenchyma is compressed. Several other smaller cystic lesions in the left lobe the liver. Bile ducts: Mild biliary duct dilatation at the periphery of the large cystic mass in the right lobe of the liver. Gallbladder: Surgically absent Pancreas: Normal Spleen: Normal Adrenal glands: Normal Kidneys: Tiny left renal cyst, otherwise normal. Contrast in renal collecting systems likely from prior CT. Ureters: Normal Bladder: Griggs catheter present. Lumen is collapsed. Aorta: Mild atherosclerotic calcifications . No aneurysm. Retroperitoneum: Subcentimeter retroperitoneal lymph nodes.. Peritoneum: No ascites or free air Mesentery: Normal Stomach: Small hiatal hernia. Small bowel: Not distended. Colon: Diverticulosis without diverticulitis. Appendix: Not identified. Extraperitoneal pelvis: No lymphadenopathy. Mild presacral edema. Uterus: Atrophic Ovaries: No adnexal masses. Abdominal wall: Suture material along the anterior abdominal fascia. No hematomas. Injection granuloma left buttocks. Bones: Streak artifact from left total hip and right shoulder arthroplasties obscure adjacent structures. Bones are osteopenic. Degenerative changes in the spine and left shoulder. No fracture. Procedure Note Mu, Incoming Imaging Results - Sonya Jul 06, 2016 9:32 AM CDT Procedure: CT CHEST ABDOMEN PELVIS W CONTRAST ([id number], [id number]) Clinical Indication: Fall down stairs, head bleeds Technique: CT exam of the chest, abdomen, and pelvis is performed following the uneventful administration of 100 cc Isovue-370 IV contrast. Comparison: None. Findings: Neck base and axilla: No lymphadenopathy. Air bubble in right subclavian vein, likely related to contrast injection. Mediastinum and odilia: Subcentimeter mediastinal lymph nodes. Heart and thoracic aorta: Mild cardiomegaly. Airway: Patent. Lungs and pleura: Bilateral dependent atelectasis. Mild pulmonary venous congestion and interlobular septal thickening. Patchy atelectasis in the lingula. Esophagus: Fluid filled esophagus to the superior mediastinum. Liver: Liver mildly enlarged at 19 cm craniocaudal. 10 x 11 x 16 cm well-circumscribed mass in the right lobe of the liver with Hounsfield units of 13. Anterior to the inferior portion of the cystic mass there is low attenuation within the liver (6-108) that is favored to be chronic as there is no overlying fracture or subcapsular hematoma. Surrounding hepatic parenchyma is compressed. Several other smaller cystic lesions in the left lobe the liver. Bile ducts: Mild biliary duct dilatation at the periphery of the large cystic mass in the right lobe of the liver. Gallbladder: Surgically absent Pancreas: Normal Spleen: Normal Adrenal glands: Normal Kidneys: Tiny left renal cyst, otherwise normal. Contrast in renal collecting systems likely from prior CT. Ureters: Normal Bladder: Griggs catheter present. Lumen is collapsed. Aorta: Mild atherosclerotic calcifications . No aneurysm. Retroperitoneum: Subcentimeter retroperitoneal lymph nodes.. Peritoneum: No ascites or free air Mesentery: Normal Stomach: Small hiatal hernia. Small bowel: Not distended. Colon: Diverticulosis without diverticulitis. Appendix: Not identified. Extraperitoneal pelvis: No lymphadenopathy. Mild presacral edema. Uterus: Atrophic Ovaries: No adnexal masses. Abdominal wall: Suture material along the anterior abdominal fascia. No hematomas. Injection granuloma left buttocks. Bones: Streak artifact from left total hip and right shoulder arthroplasties obscure adjacent structures. Bones are osteopenic. Degenerative changes in the spine and left shoulder. No fracture. IMPRESSION Impression: 1. No acute traumatic pathology. 2. Lungs show bilateral dependent atelectasis and possible mild pulmonary venous congestion. 3. Multiple well-circumscribed cystic lesions in the liver. Mild diffuse biliary duct dilatation. These are favored to represent simple cysts causing mild extrinsic compression of adjacent bile ducts. Much less likely is biliary cystadenoma due to the ductal dilatation. 4. Fluid-filled esophagus to the superior mediastinum. Consider enteric tube placement to decrease risk of aspiration. This final report is in agreement with the critical and emergent preliminary findings reported by the microarray operations vice president systems protection technician. CT ANGIO HEAD W/WO CONTRAST ([id number]) (07/06/2016 2:09 AM) Impressions Impression: 1. Slightly increased size of hemorrhagic contusion at right occipital lobe. Otherwise intracranial hemorrhages are stable as described. 2. Stable right occipital fracture. 3. 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 This final report is in agreement with the critical and emergent preliminary findings reported by the microarray operations vice president systems protection technician. Narrative Procedure: CT BRAIN WO CONTRAST ([id number]), CT ANGIO HEAD W/WO CONTRAST ([id number]), EXTERNAL CT-STORE & INTERPRET Indication: Trauma, known intracranial hemorrhages. Exam: 1. Axial CT of the brain without IV contrast. Sagittal and coronal reformations were also provided for review. 2. Axial CT angiogram of the [place] after the uneventful administration of 145 mL Isovue-370 IV contrast. Comparison: External noncontrast head CT dated 07/05/2016 at 2254 from [facility]. Findings: - Brain: Stable bilateral and parafalcine subdural hematomas, right greater than left. Stable subarachnoid hemorrhage in the right parietal, bilateral frontal, and left temporal lobes. Hemorrhagic contusion of the left frontal lobe is stable. Hemorrhagic contusion at the right occipital lobe is slightly increased in size. Stable left frontal hemorrhagic contusion. No acute large vascular excretion infarct. Ventricular size and configuration is stable. No herniation. Stable right occipital fracture that does not involve any foramen or canals. Partial opacification of bilateral mastoid air cells, this will be better evaluated on subsequent IAC CT. - Head: The distal internal carotid arteries are unremarkable. Normal distal vertebral and basilar arteries. Focal severe stenosis at the left P1 segment. No evidence of aneurysm or malformation. right RADIOLOGY DIRECTOR. Procedure Note Mu, Incoming Imaging Results - Sonya Jul 06, 2016 10:10 AM CDT Procedure: CT BRAIN WO CONTRAST ([id number]), CT ANGIO HEAD W/WO CONTRAST ([id number]), EXTERNAL CT-STORE & INTERPRET Indication: Trauma, known intracranial hemorrhages. Exam: 1. Axial CT of the brain without IV contrast. Sagittal and coronal reformations were also provided for review. 2. Axial CT angiogram of the [place] after the uneventful administration of 145 mL Isovue-370 IV contrast. Comparison: External noncontrast head CT dated 07/05/2016 at 2254 from [facility]. Findings: - Brain: Stable bilateral and parafalcine subdural hematomas, right greater than left. Stable subarachnoid hemorrhage in the right parietal, bilateral frontal, and left temporal lobes. Hemorrhagic contusion of the left frontal lobe is stable. Hemorrhagic contusion at the right occipital lobe is slightly increased in size. Stable left frontal hemorrhagic contusion. No acute large vascular excretion infarct. Ventricular size and configuration is stable. No herniation. Stable right occipital fracture that does not involve any foramen or canals. Partial opacification of bilateral mastoid air cells, this will be better evaluated on subsequent IAC CT. - Head: The distal internal carotid arteries are unremarkable. Normal distal vertebral and basilar arteries. Focal severe stenosis at the left P1 segment. No evidence of aneurysm or malformation. right RADIOLOGY DIRECTOR. IMPRESSION Impression: 1. Slightly increased size of hemorrhagic contusion at right occipital lobe. Otherwise intracranial hemorrhages are stable as described. 2. Stable right occipital fracture. 3. 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 This final report is in agreement with the critical and emergent preliminary findings reported by the microarray operations vice president systems protection technician. CT THORACIC& LUMBAR SPINE (REPROCESS IMAGES) ([id number], [id number]) (07/06/2016 2:08 AM ) Impressions Impression: 1. Widening of the anterior T6-T7 interspace and disruption of the bridging anterior syndesmophytes. This is age indeterminant, please correlate with point tenderness. MRI could also be used for further evaluation. 2. No evidence of traumatic injury in the lumbar spine. The preliminary report by the microarray operations vice president systems protection technician did not include the findings of possible acute injury at T6-T7. This was called to Dr. Herrera via pager/extension [phone] at the time of the final report at 0928 hrs on 07/06/2016. Narrative Procedure:CT THORACIC & LUMBAR SPINE (REPROCESS IMAGES) ([id number], [id number]) Indication: Trauma, fall, intracranial hemorrhages. Technique: Axial CT images of the thoracic and lumbar spine were obtained from C7-T1 to S1-S2 disc space without administration of intravenous contrast. Coronal and sagittal reformatted images were generated reviewed. Comparison: CT chest abdomen pelvis dated 07/06/2016 Findings: - T-Spine: The osseous structures are normal in alignment. There is no evidence of fracture. Mild widening of the anterior T6-T7 intervertebral disc space with disruption of the bridging anterior syndesmophytes. Moderate multilevel degenerative changes. Canal is preserved. - L-Spine: Normal lumbar lordosis with anatomic alignment. There is no evidence of fracture. Moderate multilevel degenerative changes worse at the facets. Canal is preserved. Nonosseous structures are better evaluated on dedicated chest abdomen pelvis CT Procedure Note Mu, Incoming Imaging Results - Sonya Jul 06, 2016 10:10 AM CDT Procedure:CT THORACIC & LUMBAR SPINE (REPROCESS IMAGES) ([id number], [id number]) Indication: Trauma, fall, intracranial hemorrhages. Technique: Axial CT images of the thoracic and lumbar spine were obtained from C7-T1 to S1-S2 disc space without administration of intravenous contrast. Coronal and sagittal reformatted images were generated reviewed. Comparison: CT chest abdomen pelvis dated 07/06/2016 Findings: - T-Spine: The osseous structures are normal in alignment. There is no evidence of fracture. Mild widening of the anterior T6-T7 intervertebral disc space with disruption of the bridging anterior syndesmophytes. Moderate multilevel degenerative changes. Canal is preserved. - L-Spine: Normal lumbar lordosis with anatomic alignment. There is no evidence of fracture. Moderate multilevel degenerative changes worse at the facets. Canal is preserved. Nonosseous structures are better evaluated on dedicated chest abdomen pelvis CT IMPRESSION Impression: 1. Widening of the anterior T6-T7 interspace and disruption of the bridging anterior syndesmophytes. This is age indeterminant, please correlate with point tenderness. MRI could also be used for further evaluation. 2. No evidence of traumatic injury in the lumbar spine. The preliminary report by the microarray operations vice president systems protection technician did not include the findings of possible acute injury at T6-T7. This was called to Dr. Herrera via pager/extension [phone] at the time of the final report at 0928 hrs on 07/06/2016. MICROSCOPIC URINALYSIS (07/06/2016 1:58 AM) Component Value Range White Blood Cells, Urine 1 0-5 /HPF Red Blood Cells, Urine 3(H) 0-2 /HPF Mucous-Urine Rare None, Rare Specimen Urine URINALYSIS WITH REFLEX CULTURE (07/06/2016 1:58 AM) Component Value Range Color, Urine None Straw, Pale Yellow, Yellow, Clear, None Clarity, Urine Clear Clear pH, Urine 8.0 <9.0 Spec [place], Urine 1.030(H) 1.000-1.030 Glucose, Urine 2+(A) Negative Blood, Urine 1+(A) Negative Ketones, Urine Trace(A) Negative Protein, Urine Negative Negative Urobilinogen, Urine Normal Normal Bilirubin, Urine Negative Negative Leukocyte Esterase, Urine Negative Negative Nitrite, Urine Negative Negative Specimen Urine THC-URINE SCREEN (07/06/2016 1:58 AM) Component Value Range THC, Urine NegativeComment: Negative Test-cut off:50 ng/mL Drug of abuse screening tests are to be used for medical purposes only and not for non-medical purposes (e.g., employee or forensic testing). Specimen Urine DRUGS OF ABUSE - URINE (07/06/2016 1:58 AM) Component Value Range Amphetamines, Urine NegativeComment: Negative Test cut-off: 1000 ng/mL for d-methamphetamine. Benzodiazepine, Urine NegativeComment: Negative Test cut-off:100 ng/mL Cocaine, Urine NegativeComment: Negative Test cut-off:300 ng/mL Opiate, Urine NegativeComment: Negative Test cut-off:300 ng/mL for morphine Oxycodone, Urine NegativeComment: Negative Test cut-off:300 ng/mL Amphetamines assay cross-reacts well with amphetamine and methamphetamine, as well as the "analog device designer" amphetamines MDMA ("Ecstasy"), MDA, MDEA ("[place]"), MBDB , PMA, and PMMA. Labetalol may also produce f alse positives due to cross-reactivity of a metabolite. The amphetamines assay has little or no cross-reactivity with ephedrine, pseudoephedrine, phentermine, and methylphenidate. Opiates assay has lo w cross-reactivity for buprenorphine, fentanyl, meperidine, methadone, oxycodone, and propoxyphene (all have cut-offs greater than 75,000 ng/mL). Please see Laboratory Services Handbook ([email or web address]_ handbook.index.html) for more detailed information on assay cross-reactivity. Drug of abuse screening tests are to be used for medical purposes only and not for non-medical purposes (e.g., employee, creative art therapist, or forensic testing). Specimen Urine URINALYSIS WITH REFLEXED CULTURE AND MICROSCOPIC EXAM (07/06/2016 1:58 AM) Specimen Culture - Urine, Midstream clean catch Narrative The following orders were created for panel order URINALYSIS WITH REFLEXED CULTURE AND MICROSCOPIC EXAM. Procedure Abnormality Status --------- ------ URINALYSIS WITH REFLEX C...[[id number]]AbnormalFinal result MICROSCOPIC URINALYSIS[[id number]] Abnormal Final result URINE CULTURE, REFLEXED[[id number]] Please view results for these tests on the individual orders. PELVIS AP (07/06/2016 1:11 AM) Impressions Findings/impression: No acute fracture or dislocation. Left total hip arthroplasty without radiographic evidence of complication. Nonspecific soft tissue calcifications projecting over the upper right thigh. Narrative Procedure:PELVIS AP Clinical Indication: Trauma, status post fall downstairs. Comparison:None. Procedure Note Mu, Incoming Imaging Results - [facility] Jul 06, 2016 10:24 AM CDT Procedure: PELVIS AP Clinical Indication: Trauma, status post fall downstairs. Comparison: None. IMPRESSION Findings/impression: No acute fracture or dislocation. Left total hip arthroplasty without radiographic evidence of complication. Nonspecific soft tissue calcifications projecting over the upper right thigh. CHEST - AP/PA (07/06/2016 1:11 AM) Impressions Findings / Impression: No airspace disease. No pneumothorax. Diffuse prominence of the interstitial markings is nonspecific but can be seen with chronic interstitial lung disease and emphysema. Cardiomediastinal silhouette and pulmonary vasculature are normal. No displaced fractures. Right shoulder arthroplasty. Narrative Procedure: CHEST - AP/PA Technique: Portable AP chest radiograph Comparison: Chest radiograph(s) dated: None. Clinical Indication: Trauma Procedure Note Mu, Incoming Imaging Results - Sonya Jul 06, 2016 10:25 AM CDT Procedure: CHEST - AP/PA Technique: Portable AP chest radiograph Comparison: Chest radiograph(s) dated: None. Clinical Indication: Trauma IMPRESSION Findings / Impression: No airspace disease. No pneumothorax. Diffuse prominence of the interstitial markings is nonspecific but can be seen with chronic interstitial lung disease and emphysema. Cardiomediastinal silhouette and pulmonary vasculature are normal. No displaced fractures. Right shoulder arthroplasty. BLOOD BANK SAMPLE HOLD (07/06/2016 1:04 AM) Component Value Range Blood Bank Sample Hold Hold Specimen Specimen Blood, unspecified source TROPONIN T (07/06/2016 1:02 AM) Component Value Range Troponin-T <0.03 <=0.10 ng/mL Specimen Blood ETHANOL, PLASMA (07/06/2016 1:02 AM) Component Value Range Ethanol 0Comment: mg/dL Reference range: None detected. Ethanol intoxication typically begins in the 50-100 mg/dL range. Critical value: >300 mg/dL. Ethanol values less than 10 mg/dL cannot be distinguished from zero. Specimen Blood PTT (PARTIAL THROMBOPLASTIN TIME) (07/06/2016 1:02 AM) Component Value Range PTT 23 22-31 secs Specimen Blood PT/INR (PROTHROMBIN TIME/INR) VENOUS (07/06/2016 1:02 AM) Component Value Range PT (Prothrombin Time) 11 9-12 secs INR 1.0 <4.[address]-STORE& INTERPRET (07/06/2016 12:46 AM)Only the most recent of2 resultswithin the time period is included. Impressions Impression: 1.Negative C-spine CT for trauma 2.Right occipital fracture will be better evaluated on dedicated head CT. Trauma team is aware of findings at time of dictation. This final report is in agreement with the critical and emergent preliminary findings reported by the microarray operations vice president systems protection technician. Narrative Outside film interpretation requested. Patient name: MAE.Exam was performed at 2250 hours on 07/05/2016 at [facility]. 136 images are provided and interpreted on the in-house PACS. Procedure: CT exam of the cervical spine without IV contrast. Technique: Exam is performed with no IV contrast and consists of axial, coronal, and sagittal images of the cervical spine Procedure: EXTERNAL CT-STORE & INTERPRET Indication: Fall with known intracranial hemorrhage Technique: Axial CT of the cervical spine without IV contrast. Sagittal and coronal reformations are also provided for review. Comparison: None. Findings: The spine is visualized from the skull base through T1. There is normal alignment. There is no evidence of acute fracture or dislocation. Craniovertebral junction relationships are well maintained.Vertebral body heights are within normal limits. Moderate multilevel degenerative changes. Prevertebral soft tissues are unremarkable.Biapical atelectasis. Left apical pleural thickening. Right occipital fracture is better evaluated on head CT. Procedure Note Mu, Incoming Imaging Results - Sonya Jul 06, 2016 10:10 AM CDT Outside film interpretation requested. Patient name: MAE. Exam was performed at 2250 hours on 07/05/2016 at [facility]. 136 images are provided and interpreted on the in-house PACS. Procedure: CT exam of the cervical spine without IV contrast. Technique: Exam is performed with no IV contrast and consists of axial, coronal, and sagittal images of the cervical spine Procedure: EXTERNAL CT-STORE & INTERPRET Indication: Fall with known intracranial hemorrhage Technique: Axial CT of the cervical spine without IV contrast. Sagittal and coronal reformations are also provided for review. Comparison: None. Findings: The spine is visualized from the skull base through T1. There is normal alignment. There is no evidence of acute fracture or dislocation. Craniovertebral junction relationships are well maintained. Vertebral body heights are within normal limits. Moderate multilevel degenerative changes. Prevertebral soft tissues are unremarkable. Biapical atelectasis. Left apical pleural thickening. Right occipital fracture is better evaluated on head CT. IMPRESSION Impression: 1. Negative C-spine CT for trauma 2. Right occipital fracture will be better evaluated on dedicated head CT. Trauma team is aware of findings at time of dictation. This final report is in agreement with the critical and emergent preliminary findings reported by the microarray operations vice president systems protection technician.
[2016-09-12 13:58] LABS: Hematocrit 38.3 % (37.0-47.0); Hemoglobin 12.3 gm/dL (12.5-16.0); Mean Cell Volume 97.2 fl (78-100); Mean Corpuscular Hemoglobin 31.2 pg (27-31); Mean Corpuscular Hgb Conc 32.1 g/dl (32-36); Mean Platelet Volume 10.4 fl (6.0-9.5); Neutrophil # 4.4 K/mm3 (1.3-6.0); Neutrophil % 60.5 % (42-75.0); Platelet Count 170 K/mm3 (150-450); Red Blood Count 3.94 M/mm3 (4.2-5.4); Red Cell Distribution Width 14.7 % (11.5-14.0); White Blood Count 7.3 K/mm3 (4.0-10.5)
[2016-09-12 14:13] LABS: Albumin * 3.4 gm/dl (3.4-5.0); Anion Gap 12.3 mmol/L (6.8-13.8); BUN/Creatinine Ratio 22.2 (9.0-21.6); Bilirubin, Total 0.6 mg/dL (0.0-1.1); Ca. Corrected For Albumin 9.1 mg/dL (8.4-10.2); Calcium * 8.9 mg/dL (7.9-10.9); Carbon Dioxide 29.5 mmol/L (24-32.6); Potassium 3.8 mmol/L (3.4-4.6)
[2016-09-12 15:01] LABS: Urine Bilirubin Negative (NEGATIVE); Urine Blood Negative /ul (NEGATIVE); Urine Ketone Negative (NEGATIVE); Urine Nitrite Negative (NEGATIVE); Urine Protein Negative (NEGATIVE); Urine Specific Gravity 1.015 SP.GR. (1.005-1.010); Urine Urobilinogen Normal (NORMAL)
[2016-09-12 15:12] LABS: Urine Appearance Slightly Cloudy; Urine Color Yellow
[2016-09-12 15:13] LABS: Urine Bacteria None Seen; Urine Hyaline Cast 0-5 /LPF; Urine RBC None Seen /hpf (0-5); Urine WBC None Seen /hpf (0-5)
[2016-09-12 15:36] VITALS: BP 128/49
== END 2016-09-12 16:20 | disposition home or self-care (01) ==
LOC: ER 13:42
DX: R55 Syncope and collapse (principal); K29.00 Acute gastritis without bleeding
CPT/HCPCS: 36415; 74020; 80053; 81001; 82150; 83690; 84484; 85025; 93005; 96374; 99284; J2405

== ENCOUNTER 2017-02-05 06:48 | Day surgery (SDC) | payer MEDICARE, OTHER ==
[~2017-02-05 06:48] MED LIST: RINGER'S SOLUTION,LACTATED 1,000 ML IV PRN
[2017-02-05] MEDS ORDERED: ceFAZolin SODIUM 1 GM VIAL IV ONE (07:45)
[2017-02-05] MEDS ORDERED: BUPIVACAINE HCL/EPINEPHRINE 50 ML VIAL IJ ONE (08:00)
[2017-02-05] MEDS ORDERED: RINGER'S SOLUTION,LACTATED 1,000 ML IV PRN (08:54)
[2017-02-05] MEDS ORDERED: oxyCODONE HCL/ACETAMINOPHEN 1 TAB TABLET ONE (09:40)
[2017-02-05] MEDS: oxyCODONE HCL/ACETAMINOPHEN 1 TAB TABLET PO ONE ×2 (09:41→10:07)
[2017-02-05 12:09] VITALS: BP 118/60
--- NOTE | 2017-02-05 17:33 | OR ---
Operative Report - Dictated Report Narrative: OPERATIVE REPORT DATE OF OPERATION: 02/05/2017 PREOPERATIVE DIAGNOSIS: Right buttock mass POSTOPERATIVE DIAGNOSIS: Same (pathology pending) OPERATION: Excision of right buttock mass (5 x 5 cm) SURGEON: Poncho Scott MD ANESTHESIA: MAC/local Kait Vanegas CRNA INDICATIONS FOR PROCEDURE: The patient is an 81-year-old female presents self- referred with enlarging tender mass is over both ischial tuberosities. Imaging indicates dystrophic calcifications. The mass on the right side is more bothersome and will be addressed first. FINDINGS: 5 x 5 cm mass in the right buttock containing what appeared to be grossly dystrophic calcification. NARRATIVE OF PROCEDURE: The patient was identified preoperatively. The surgical site was marked. Prior to the administration of anesthetic a multidisciplinary timeout was observed. 2 g of intravenous Ancef was administered. SCDs were applied. The patient was placed in the right lateral position and after the administration of intravenous sedation the right buttock was retracted with tape and the area prepped with Betadine solution. The area around the lesion was isolated with 4 sterile towels. The remainder the patient was covered with sterile disposable drapes. An elliptical skin incision was outlined with a marking pen. The tissue around the mass was infiltrated with 0.5% Marcaine with epinephrine. Skin incision was made sharply and dissection carried into grossly normal-appearing subcutaneous tissue using electrocautery. Using a combination of electrocautery and Metzenbaum scissors dissection the mass was dissected free from grossly normal- appearing subcutaneous tissue, excised and submitted to pathology. The base of the wound was then irrigated with saline and inspected for hemostasis which appeared complete. After receiving a correct sponge needle and instrument count attention was turned to closing the wound. Subcutaneous tissues were approximated with interrupted sutures of antibiotic-containing 2-0 Vicryl. Skin was closed with colten. The operative site was washed and dried. A dressing of Dermabond and Mepilex border was applied. The operative procedure was terminated at this point. The patient tolerated the anesthetic and procedure well without complication. There was no measurable blood loss. The mass was submitted to pathology. 0.5% Marcaine with epinephrine was used for local anesthetic infiltration. The patient was transferred back to the ambulatory surgery area awake and in stable condition. The patient remained stable throughout a period of postoperative observation. She denied significant discomfort, was able to be up without assistance, and tolerated a regular diet. She was discharged home with instructions not to engage in hazardous activity today. She is to keep the wound dry and covered for 48 hours but then may shower and change her dressing as needed. She was given a prescription for Percocet 5/325 mg #20 1-2 po Q4-6hrs prn pain. She has phone numbers to call if needed for uncontrolled pain or concerns about the wound. A return office appointment was made for 1 week. Reviewed and electronically signed
== END 2017-02-05 06:49 | disposition home or self-care (01) ==
LOC: AMB 06:48
PROVIDERS: ATTEND Surgery
PROC: 0JQ90ZZ Repair Buttock Subcutaneous Tissue and Fascia, Open Approach (ICD-10-PCS; 2017-02-05)
PROC: 0JB70ZZ Excision of Back Subcutaneous Tissue and Fascia, Open Approach (ICD-10-PCS; principal; 2017-02-05 08:00)
DX: L94.2 Calcinosis cutis (principal); L98.8 Other specified disorders of the skin and subcutaneous tissue; I10 Essential (primary) hypertension; I48.91 Unspecified atrial fibrillation; G47.33 Obstructive sleep apnea (adult) (pediatric); Z87.891 Personal history of nicotine dependence; Z68.26 Body mass index [BMI] 26.0-26.9, adult

== ENCOUNTER 2020-08-17 06:25 | Observation (INO) ==
--- NOTE | 2020-07-28 08:37 | ANES ---
Anesthesia Pre Procedure Eval HOME MEDICATIONS Cyanocobalamin [Vitamin B-12] 1,000 mcg PO DAILY 01/25/16 [Last Taken 02/14/16] Calcium Carbonate/Vitamin D3 [Calcium 600 + Vit D 200 Tablet] 1 ea PO DAILY 01/19/17 [Last Taken Unknown] Cholecalciferol (Vitamin D3) [Vitamin D] 2,000 unit PO DAILY 01/19/17 [Last Taken Unknown] Multivitamins [Multivitamin Lucian] 1 cap PO DAILY 01/19/17 [Last Taken Unknown] losartan 50 mg tablet 50 mg PO DAILY #90 tab 03/19/20 [Last Taken Unknown] metoprolol tartrate 100 mg tablet 100 mg PO BID #180 tab 03/29/20 [Last Taken Unknown] Allergies/Adverse Reactions: Allergies Allergy/AdvReac Type Severity Reaction Status Date / Time codeine [Codeine] AdvReac Mild NAUSEA, Verified 07/23/20 10:46 VOMITING, stomach pains - Planned Procedure Planned Procedure: Right Arthroplasty Total Hip Medical History (Last Updated 07/23/20 @ 10:51 by Elenita Barker CLINICAL MARKETING MANAGER) Primary osteoarthritis of right hip (Chronic) Hypertension (Chronic) Obstructive sleep apnea (Chronic) Onset Date: ~09/25/16 Afib Joint pain Osteoarthritis of right shoulder Onset Date: ~03/29/16 Sensorineural hearing loss Vertigo COVID-19 vaccine administered Onset Date: 07/18/20 [facility] Moderna- both doses 07/18/2020(2 dose) Closed skull fracture Onset Date: 07/06/16 Concussion Dizziness Fracture of lumbar spine Fracture, sacrum/coccyx Hip pain, left Humerus fracture Onset Date: 08/24/14 right Shoulder pain, right Subarachnoid hemorrhage Onset Date: 07/06/16 Postmenopausal Surgical History (Last Reviewed 07/23/20 @ 10:50 by Elenita Barker CMA) History of appendectomy Onset Date: Unknown History of cholecystectomy Onset Date: Unknown History of colonoscopy Onset Date: ~2009 History of excision of mass Onset Date: 05/09/17 Dr. Lizett Scott, [facility]. Excision of left buttock mass dystrophic calcification. History of excision of mass Onset Date: 02/05/17 Dr. Lizett Scott, [facility]. Excision of right buttock mass, 5cm x 5cm. Dystrophic calcification. History of total left hip arthroplasty Onset Date: ~05/2014 [facility]. History of total replacement of right shoulder joint Onset Date: 02/15/16 Dr. Jensen Portillo, [facility]. Co-surgeon, Dr. Aric Guzman. Lower extremity surgery planned varicose veins Family History (Last Reviewed 07/23/20 @ 10:50 by Elenita Barker [facility]) Brother , age 79 unsure of cause No problems noted. Father , age 79 Kidney failure Grandfather Diabetes Mother , age 86 unsure of cause No problems noted. Sister Parkinsons Sister , age 93 unsure of cause No problems noted. - Respiratory Respiratory History: sleep apnea Smoking Status: Former smoker Discussed smoking cessation including day of surgery: No Sleep Apnea currently treated: No Sleep Apnea by current assessment: Yes Discussed Risks/Treatment of SANDY: Yes - Cardiovascular Tolerate Activity: Fair - Anesthesia Assessment and Plan ASA Class: PS, III Anesthesia Type Plan: Spinal
[~2020-08-17 06:25] MED LIST changes: +MORPHINE SULFATE 15 MG TABLET.SA PO PRN; -RINGER'S SOLUTION,LACTATED 1,000 ML IV PRN; +ROPIVACAINE/CLONIDIN/KETOROLAC 50 ML SYRINGE IJ PRN; +TRANEXAMIC ACID 1,000 MG in NORMAL SALINE 100 ML IV PRN; +ceFAZolin SODIUM 1 GM VIAL IV PRN
[2020-08-17] MEDS ORDERED: ISOPROPYL ALCOHOL 480 APPL BTL MC ONE (06:39)
[2020-08-17] MEDS ORDERED: ceFAZolin SODIUM 1 GM VIAL ONE (06:39)
[2020-08-17] MEDS ORDERED: ROPIVACAINE/CLONIDIN/KETOROLAC 50 ML SYRINGE IJ ONE (06:40)
[2020-08-17] MEDS: RINGER'S SOLUTION,LACTATED 1,000 ML IV PRN ×2 (06:41→08:40)
[2020-08-17] MEDS ORDERED: MIDAZOLAM HCL/PF 5 MG/ML VIAL ONE (07:05)
[2020-08-17] MEDS ORDERED: BUPIVACAINE HCL/PF 10 ML VIAL ONE (07:05)
[2020-08-17] MEDS ORDERED: NORMAL SALINE 20 ML VIAL ONE (07:05)
[2020-08-17] MEDS ORDERED: LIDOCAINE HCL 20 ML VIAL ONE (07:05)
[2020-08-17] MEDS ORDERED: PROPOFOL VIAL IV ONE (07:05)
[2020-08-17] MEDS ORDERED: ONDANSETRON HCL/PF 2 MG/ML VIAL IV PRN (09:38)
[2020-08-17] MEDS ORDERED: MAGNESIUM HYDROXIDE 30 ML UDC PO PRN (09:38)
[2020-08-17] MEDS ORDERED: diphenhydrAMINE HCL 50 MG/ML VIAL IV PRN (09:38)
[2020-08-17] MEDS ORDERED: ACETAMINOPHEN 500 MG TABLET PO PRN (09:38)
[2020-08-17] MEDS ORDERED: ZOLPIDEM TARTRATE 5 MG TABLET PO PRN (09:38)
[2020-08-17] MEDS ORDERED: MORPHINE SULFATE 2 MG/ML DISP.SYRIN IV PRN (09:38)
[2020-08-17] MEDS ORDERED: MAG HYDROX/ALUMINUM HYD/SIMETH 30 ML UDC PO PRN (09:38)
--- NOTE | 2020-08-17 09:38 | OR ---
Operative Report - Dictated Report Narrative: Date: 08/17/2020 Preoperative diagnosis: Right hip degenerative joint disease. Postoperative diagnosis: Right hip degenerative joint disease. Procedure: Right total hip arthroplasty. Surgeon: Aric Guzman M.D. Press Bucker: Perez Myers PA-C (provided an essential set of skilled, educated and assisted with transfer, positioning, prepping, draping, manipulation, traction, irrigation, suturing, and placement of dressings all of which cannot be performed by the available surgical crew) Anesthesia: Spinal and local periarticular joint injection. Complications: None Specimens: Bone. Estimated blood loss: 150 milliliters. Retained implants: Depuy Weber size 5 femoral stem standard offset. Size 52 millimeter outside diameter 3-hole Britton Gription acetabular cup. 52 millimeter outside by 36 millimeter inside diameter highly cross-linked acetabular liner. 36 millimeter diameter + 1.5 millimeter cobalt chromium femoral head. Cancellous 6.5mm screw 30 millimeter length Indications: Mrs. Phillip is a 85-year-old female who has had longstanding right hip pain and arthrosis. This patient was followed in my clinic for period of time with significant complaints of right hip pain consistent with arthritic changes. She failed conservative measures including but not limited to activity modification, passage of time, medications, and other conservative measures. Patient wished to proceed with surgical treatment. The risks, benefits, and alternatives were discussed in clinic. The risks of , blood clots, bleeding, infection, nerve/tendon blood vessel/ injury, malposition of components, dislocation and/or instability of joint, intraoperative fracture, postoperative limited range of motion, persistent pain, failure of components, and need for additional procedures. Patient wished to proceed. Consent was obtained after answering all questions. Procedure: After marking the correct extremity on the floor, the patient was taken to the operating room. A timeout was performed. IV antibiotics consisting of Ancef were administered prior to the procedure. A spinal anesthetic was induced by anesthesia. A Griggs catheter was inserted. The patient was then transitioned to a lateral position on a well-padded pegboard. An axillary roll was placed. The head was in neutral position. The non- operative down leg was well-padded with SCD and JADE hose in place. The arms were supported and padded to protect from any undue pressure on the bony prominences and nerves. A well-padded anterior and posterior pelvic and chest posts were secured in order to maintain a stable position of the pelvis. This was placed so that the pelvis was perpendicular to the floor. The body was in line with the pelvis. Once it was felt that we had protected all the bony prominences and the patient was well secured with a safety belt as well, the leg was pre-scrubbed with alcohol, prepped and draped in a standard sterile fashion. A standard anterior lateral hip incision was marked out over the greater trochanter. Ioban drapes were then placed. The skin incision was then made. Sharp dissection with a scalpel utilizing cautery for hemostasis was carried out down to the gluteus and iliotibial band fascia. This was split in line with the skin incision. The greater trochanter bursa was excised. The anterior and posterior margins of the abductor tendon were identified. The anterior 1/2-1/3 of the tendon was tagged and reflected off the greater trochanter leaving a sleeve of tendon for repair at the completion of the case. This exposed the underlying hip joint capsule. An inverted T-type capsulotomy was made extending this up to the brim of the acetabulum. Using Homans to assist with elevation of the soft tissues off the anterior, superior, and inferior aspects of the femoral neck, the hip was then placed in a figure 4 position and the femoral head was dislocated. With the leg in an externally rotated and adducted position, the cutting flag was utilized in order to sophia for a standard femoral neck cut approximately a fingerbreadth above the level of the lesser trochanter. This was done with reference to pre-operative films and overall alignment. This was done while protecting the surrounding soft tissues with Homans. The femoral head was then removed and sized for guidance on preparation of the acetabulum. It was noted that there was loss of articular cartilage on both the femoral head and weightbearing portions of the acetabulum. We then returned the leg to the table and turned our attention to the acetabulum. While protecting the surrounding soft tissues, the labrum and remaining tissue in the fovea were excised using a scalpel and cautery. A series of reamers up to size 52 millimeter were utilized to prepare the acetabulum. The final reamer had good purchase and exposed the bleeding subchondral bone. The acetabulum was then thoroughly irrigated ensuring that all bony and cartilaginous materials were removed, and the final acetabular shell was impacted into place. This was placed in approximately 45 degrees of abduction and 20 degrees of anteversion utilizing the outrigger and body axis for alignment. This had a good press fit. 1 6.5mm cancellous screw was placed in the superior posterior quadrant of the acetabulum. The shell was then thoroughly irrigated and the final polyethylene was impacted into place ensuring that it seated completely. This was then protected with a sponge while we returned our attention to the femur. With the leg in a figure 4 position, utilizing Homans for soft tissue protection, a box cutting osteotome, followed by Charnley awl, followed by serial reamers and broaches were utilized in order to prepare the femur. It was found that a size 5 broach gave good axial and rotational stability. The calcar reamer was utilized in order to clean up the cut edges. The proximal femur was visualized to ensure that there were no signs of fracture. A series of heads and necks were trialed. It was found that a standard offset neck and a + 1.5 femoral head gave good overall stability. There was minimal longitudinal instability. With the leg in the position of sleep, the femoral head was well covered. Hip range of motion was able to reach full extension and external rotation to greater than 75 degrees prior to impingement along the posterior acetabulum. The hip was able to be flexed to greater than 90 degrees with internal rotation greater than 60 degrees prior to anterior impingement. The limb lengths were near equal based on comparison to the contralateral side and the prior placed limb length stitch. At this point it was felt these were the appropriately sized femoral components as well as neck and femoral head. The trial implants were removed. The femur was thoroughly irrigated. The final implants were impacted into place, and the hip was reduced. After ensuring that there was no damage to the proximal femur, the standard periarticular joint injection of ropivacaine, Toradol, and epinephrine were injected into the joint capsule and surrounding soft tissues. Anesthesia then administered intravenous tranexamic acid. The capsule was repaired with a single interrupted #1 Vicryl. The abductor tendon was repaired to the greater trochanter utilizing #5 Ethibond through drill holes. This was oversewn with #1 Vicryl. The fascia was closed with interrupted #1 Vicryl and #1 Stratafix barbed suture. The wounds were thoroughly irrigated as we closed in layers. The deep and subcutaneous fat layers were closed with 0 and 3-0 Vicryl respectively. The subcutaneous tissue was closed with a running 3-0 Vicryl and the skin colten. All sponge, needle, blade, and instrument counts were correct prior to closing the wounds. Sterile dressings consisting of xeroform, 4 x 4's, and tape were applied. The patient was awoken and transferred to her hospital bed and then to the postanesthesia care unit in stable condition. Postoperative condition: The plan is to admit to the medical/surgical inpatient floor postoperatively. There will be a projected 1 to 3 day hospital stay. Postoperatively 24 hours of IV antibiotics, pain control, physical therapy, occupational therapy, and medical comanagement will be utilized. Patient will be weightbearing as tolerated with anterior hip precautions. Postoperative films will be obtained in the recovery room.
--- NOTE | 2020-08-17 09:54 | ANES ---
Post Anesthesia Discharge - Transfer of Care Transfer of Care handoff given to nurse: Yes - Discharge from PACU Discharge from PACU when meets criteria: Yes
[2020-08-17] MEDS: DEXTROSE 5%-LACTATED RINGERS 1,000 ML IV PRN ×2 (10:27→19:23)
[2020-08-17] MEDS: KETOROLAC TROMETHAMINE 15 MG/ML VIAL IV SCH ×3 (10:28→20:54)
[2020-08-17] MEDS: ceFAZolin SODIUM 1 GM in DEXTROSE 5 % IN WATER 100 ML IV SCH ×6 (10:38→23:20)
--- NOTE | 2020-08-17 11:51 | ANES ---
Post Anesthesia Assessment - Vital Signs Vitals: Last Vital Signs Temp 36.0 C 08/17/20 10:10 Pulse 42 L 08/17/20 10:10 Resp 12 08/17/20 10:10 BP 116/43 08/17/20 10:10 Pulse Ox 93 08/17/20 10:10 Airway Patency: Normal - Mental Status Level Of Consciousness: Awake - Pain Level Pain Score: 0 - N/V Assessment Nausea/Vomiting Presence: None Dehydration:: No
[2020-08-17] MEDS: oxyCODONE HCL/ACETAMINOPHEN 1 TAB TABLET PO PRN (15:00)
[2020-08-17] MEDS: METOPROLOL TARTRATE 100 MG TABLET PO SCH (20:31)
[2020-08-17] MEDS ORDERED: MELATONIN 3,000 MCG TABLET PO PRN (20:44)
[2020-08-17] MEDS ORDERED: SENNOSIDES/DOCUSATE SODIUM 1 TAB TABLET PO SCH (21:00)
[2020-08-18] MEDS: oxyCODONE HCL/ACETAMINOPHEN 1 TAB TABLET PO PRN ×2 (02:21→07:04)
[2020-08-18] MEDS: KETOROLAC TROMETHAMINE 15 MG/ML VIAL IV SCH ×2 (03:58→09:51)
[2020-08-18 06:34] LABS: Hematocrit 33.5 % (37.0-47.0); Hemoglobin 10.7 gm/dL (12.5-16.0); Mean Cell Volume 98.8 fl (78-100); Mean Corpuscular Hemoglobin 31.6 pg (27-31); Mean Corpuscular Hgb Conc 31.9 g/dl (32-36); Mean Platelet Volume 10.6 fl (8-12.5); Platelet Count 150 K/mm3 (150-450); Red Blood Count 3.39 M/mm3 (4.2-5.4); Red Cell Distribution Width 13.5 % (11.5-14.0); White Blood Count 7.4 K/mm3 (4.0-10.5)
[2020-08-18 06:50] LABS: Anion Gap 8.2 mmol/L (6.8-13.8); BUN/Creatinine Ratio 22.8 (9.0-21.6); Calcium * 8.2 mg/dL (7.9-10.9); Carbon Dioxide 28.1 mmol/L (24-32.6); Estimated Creat Clear 49.6; Potassium 4.3 mmol/L (3.4-4.6)
[2020-08-18] MEDS ORDERED: ENOXAPARIN SODIUM 40 MG/0.4 ML SYRG SC SCH (08:38)
[2020-08-18] MEDS ORDERED: MULTIVITAMINS 1 CAP CAPSULE PO SCH (09:00)
[2020-08-18] MEDS ORDERED: LOSARTAN POTASSIUM 50 MG TABLET PO SCH (09:00)
[2020-08-18] MEDS ORDERED: CHOLECALCIFEROL 1,000 UNIT CAPSULE PO SCH (09:00)
[2020-08-18] MEDS ORDERED: CYANOCOBALAMIN 1,000 MCG TABLET PO SCH (09:00)
[2020-08-18] MEDS ORDERED: CALCIUM CARBONATE/VITAMIN D3 1 TAB TABLET PO SCH (09:00)
[2020-08-18] MEDS: METOPROLOL TARTRATE 100 MG TABLET PO SCH (09:59)
[2020-08-18] MEDS: HYDROcodone/ACETAMINOPHEN 1 EACH TABLET PO PRN ×2 (10:14→14:02)
--- NOTE | 2020-08-18 12:52 | DS ---
(1) Status post right hip replacement Problem: Acute (2) Primary osteoarthritis of right hip Problem: Chronic (3) Hypertension Problem: Chronic (4) Obstructive sleep apnea Problem: Chronic Date of Discharge:: 08/18/20 Hospital Course: Mrs. Phillip was admitted to the floor after undergoing right total hip arthroplasty. Tolerated this well. Was admitted to the floor postoperatively for 24 hours of IV antibiotics, pain control, medical comanagement, and occupational and physical therapy. OT and PT were consulted to assist with activities of daily living and ambulation. Was made weightbearing as tolerated with range of motion as tolerated utilizing anterior hip precautions. Pain was initially controlled with IV regimen. This was transitioned to oral once tole rating a by mouth intake. Was resumed on home diet and medications. Had a Griggs catheter inserted and the operating room which was discontinued on postoperative day 1. Lovenox SCD and JADE hose were utilized for DVT prophylaxis. Vital signs remained stable to the hospital course. Serial labs were obtained which showed a final hemoglobin of 10.7 grams. BMP was reviewed and was stable. Physical examination throughout the hospital course showed an extremity that had sensation that was intact to light touch, palpable pulses, a benign wound, motor intact to the toes, ankle, and knee. Once an oral pain regimen was tolerated and physical therapy goals were met, it was felt that they were stable for discharge to home. Instructions: Continue with weightbearing as tolerated and range of motion as tolerated utilizing anterior hip precautions. Keep surgical site clean and dry. If you note any drainage or for comfort you can cover with dry gauze and tape. Change every 2-3 days as needed. Continue with physical therapy. Resume home diet. Report any fever over 101.5 Fahrenheit, uncontrolled pain, increased drainage, foul odor of drainage, new or increased calf pain or shortness of breath, or any other significant complaints. A 325mg dialy aspirin will be started after finishing anticoagulation if not allergic. Continue with JADE hose on the operative extremity until instructed otherwise. No driving until instructed otherwise. Follow up in approximately 10-14 days. Procedures Performed: see notes below List Procedures: Right total hip arthroplasty Results and Findings: Lab Pending Results 08/18/20 06:20: WBC 7.4, RBC 3.39 L, Hgb 10.7 L, Hct 33.5 L, MCV 98.8, MCH 31.6 H, MCHC 31.9 L, RDW 13.5, Plt Count 150, MPV 10.6 08/18/20 06:20: Sodium 140, Plasma Sodium 140, Potassium 4.3, Chloride 108 H, Carbon Dioxide 28.1, Anion Gap 8.2, BUN 18, Creatinine 0.79, Est GFR (Non-Af Amer) 73, BUN/Creatinine Ratio 22.8 H, Random Glucose 105, Calcium 8.2 Discharge Location: Home Disposition: Home self-care Condition: Good Discharge Activity: Activity as tolerated, Weight bearing, Other - Utilizing wheeled walker and anterior hip precautions Discharge Diet: Low salt Referrals: Humberto Mahajan DO [Primary Care Provider] - Additional Patient Instructions (free text): Physical Therapy at [facility] outpatient rehab on SundayAugust 20 at 12:45pm. Follow up [facility] Orthopedic office visit on SundayAugust 30 at 9:00am. Prescriptions (Any new or edited meds): Enoxaparin Sodium [Lovenox] 40 mg SC Q24H #7 disp.syrin Transmission Status: Pending to [place] HYDROcodone/ACETAMINOPHEN [Celestine 5-325] 1 ea PO Q2H PRN #56 tab PRN Reason: Moderate Pain (Pain Scale 4-6) Transmission Status: Received by [place] Sennosides/Docusate Sodium [Senokot-S] 2 tab PO HS #30 tab Transmission Status: Pending to [place] Ondansetron HCl [Zofran] 4 mg PO QID PRN #30 tab PRN Reason: Nausea Transmission Status: Pending to [place] Complete Home Medications List: Complete Home Medication List: Cyanocobalamin [Vitamin B-12] 1,000 mcg PO DAILY 01/25/16 Calcium Carbonate/Vitamin D3 [Calcium 600-Vit D3 200 Tablet] 1 ea PO DAILY 01/19 Cholecalciferol (Vitamin D3) [Vitamin D3] 2,000 unit PO DAILY 01/19/17 Multivitamins [Multivitamin Lucian] 1 cap PO DAILY 01/19/17 losartan 50 mg tablet 50 mg PO DAILY #90 tab 03/19/20 metoprolol tartrate 100 mg tablet 100 mg PO BID #180 tab 03/29/20 Enoxaparin Sodium [Lovenox] 40 mg SC Q24H #7 disp.syrin 08/18/20 HYDROcodone/ACETAMINOPHEN [Celestine 5-325] 1 ea PO Q2H PRN #56 tab 08/18/20 Melatonin 3,000 mcg PO HS PRN tab 08/18/20 Ondansetron HCl [Zofran] 4 mg PO QID PRN #30 tab 08/18/20 Sennosides/Docusate Sodium [Senokot-S] 2 tab PO HS #30 tab 08/18/20 Amb Orders for Discharge: PT Evaluation and Treatment* Facility: [facility], Location: Rehabilitation Services
[2020-08-18 15:00] VITALS: BP 144/55
== END 2020-08-18 14:48 | disposition home or self-care (01) ==
LOC: SUR 06:25 → MS 06:25
PROVIDERS: ADMIT Orthopaedic Surgery; ATTEND Orthopaedic Surgery